=== PATIENT | male | born 2000 | race Caucasian/White ===

== ENCOUNTER 2021-05-26 19:24 | Emergency (ER) | payer OTHER ==
[2021-05-26] MEDS ORDERED: Zofran 4 MG/2 ML VIAL IV ONE (19:45)
[2021-05-26] MEDS ORDERED: Sodium Chloride 0.9% 1000 ML 1,000 ML IV STA ×2 (19:45→20:38)
--- NOTE | 2021-05-26 19:53 | ERPHSYRPT ---
- History of Present Illness Time Seen by Provider: 05/26/21 19:52 Source: patient Exam Limitations: no limitations Patient Subjective Stated Complaint: "I've been puking my guts out." Triage Nursing Assessment: Patient reported that he was working outside throout the day and began having multiple episodes of vomiting despite rest. 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 Reported abdominal cramping during the vomiting episodes. Denied pain otherwise. Denied other associated symptoms. Symmetrical chest expansion. heart tones S1/S2 tachycardic with regular rhythm. Lungs vesicular throughout all [place]. Abdomne obese non-distended and non-tended. Bowel sounds present throughout all quadrants. Peripheral pulses +3 bilateral. Physician History: Patient reported that he was working outside through out the day and began having multiple episodes of vomiting despite rest. 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 Reported abdominal cramping during the vomiting episodes. Denied pain otherwise. Denied other associated symptoms. Timing/Duration: today Severity: moderate Associated Symptoms: denies symptoms Allergies/Adverse Reactions: No Known Drug Allergies Allergy (Unverified 05/26/21 19:33) Home Medications: No Reportable Medications [No Reported Medications] 05/26/21 [History] Hx Tetanus, Diphtheria Vaccination/Date Given: No Hx Influenza Vaccination/Date Given: No Travel Risk - International Travel Have you traveled outside of the country in past 3 weeks: No - Coronavirus Screening Are you exhibiting any of the following symptoms?: No Close contact with a COVID-19 positive Pt in past 14-21 Days: No - Vaccine Status Have you recieved a Covid-19 vaccination: No - Review of Systems Constitutional: No Fever, No Chills Eyes: No Symptoms Ears, Nose, & Throat: No Symptoms Respiratory: No Cough, No Dyspnea Cardiac: No Chest Pain, No Edema, No Syncope Abdominal/Gastrointestinal: Nausea, Vomiting, No Abdominal Pain, No Diarrhea Genitourinary Symptoms: No Dysuria Musculoskeletal: No Back Pain, No Neck Pain Skin: No Rash Neurological: No Dizziness, No Focal Weakness, No Sensory Changes Psychological: No Symptoms Endocrine: No Symptoms All Other Systems: Reviewed and Negative - Past Medical History Pertinent Past Medical History: No - Past Surgical History Past Surgical History: No - Social History Smoking Status: Current every day smoker Exposure to second hand smoke: No Drug Use: none Patient Lives Alone: Yes - Nursing Vital Signs Nursing Vital Signs: Initial Vital Signs Temperature 98.3 F 05/26/21 19:25 Pulse Rate 108 H 05/26/21 19:25 Respiratory Rate 18 05/26/21 19:25 Blood Pressure 154/105 05/26/21 19:25 O2 Sat by Pulse Oximetry 97 05/26/21 19:25 Pain Scale Pain Intensity 0 - Physical Exam General Appearance: no apparent distress, alert Eye Exam: PERRL/EOMI, eyes nml inspection Ears, Nose, Throat Exam: normal ENT inspection, TMs normal, pharynx normal, moist mucous membranes Neck Exam: normal inspection, non-tender, supple, full range of motion Respiratory Exam: normal breath sounds, lungs clear, No respiratory distress Cardiovascular Exam: regular rate/rhythm, normal heart sounds, normal peripheral pulses Gastrointestinal/Abdomen Exam: soft, normal bowel sounds, No tenderness, No mass Back Exam: normal inspection, normal range of motion, No CVA tenderness, No vertebral tenderness Extremity Exam: normal inspection, normal range of motion, pelvis stable Neurologic Exam: alert, oriented x 3, cooperative, normal mood/affect, nml cerebellar function, nml station & gait, sensation nml, No motor deficits Skin Exam: normal color, warm, dry, No rash Lymphatic Exam: No adenopathy SpO2: 97 - Course Nursing assessment & vital signs reviewed: Yes Ordered Tests: Active Orders 24 hr Category Date Time Status IV Insertion STAT Care 05/26/21 19:57 Active AMYLASE Stat Lab 05/26/21 19:56 Completed CBC W DIFF Stat Lab 05/26/21 19:56 Completed CMP Stat Lab 05/26/21 19:56 Completed LIPASE Stat Lab 05/26/21 19:56 Completed Medication Summary Generic Name Dose Route Start Last Admin Trade Name Freq PRN Reason Stop Dose Admin Sodium Chloride 1,000 mls @ 999 mls/hr 05/26/21 20:38 05/26/21 20:50 Sodium Chloride 0.9% 1000 Ml IV 05/26/21 21:38 999 mls/hr .Q1H1M STA Administration Discontinued Medications Generic Name Dose Route Start Last Admin Trade Name Freq PRN Reason Stop Dose Admin Sodium Chloride 1,000 mls @ 999 mls/hr 05/26/21 19:45 05/26/21 19:59 Sodium Chloride 0.9% 1000 Ml IV 05/26/21 20:45 999 mls/hr .Q1H1M STA Administration Sodium Chloride Confirm 05/26/21 19:57 Sodium Chloride 0.9% 1000 Ml Administered 05/26/21 19:58 Dose 1,000 mls @ ud .ROUTE .STK-MED ONE Ceftriaxone Sodium/Dextrose 1 g in 50 mls @ 100 mls/hr 05/26/21 20:36 05/26/21 20:51 Rocephin 1 Gm-D5w 50 Ml Bag IV 05/26/21 21:05 100 ml/hr STAT STA 100 mls/hr Administration Sodium Chloride Confirm 05/26/21 20:47 Sodium Chloride 0.9% 1000 Ml Administered 05/26/21 20:48 Dose 1,000 mls @ ud .ROUTE .STK-MED ONE Ceftriaxone Sodium/Dextrose Confirm 05/26/21 20:47 Rocephin 1 Gm-D5w 50 Ml Bag Administered 05/26/21 20:48 Dose 1 g in 50 mls @ ud IV .STK-MED ONE Ondansetron HCl 4 mg 05/26/21 19:45 05/26/21 19:59 Zofran 4 Mg/2 Ml Vial IV 05/26/21 19:46 4 mg STAT ONE Administration Ondansetron HCl Confirm 05/26/21 19:57 Zofran 4 Mg/2 Ml Vial Administered 05/26/21 19:58 Dose 4 mg .ROUTE .STK-MED ONE Lab/Rad Data: Laboratory Result Diagrams 05/26/21 19:56 05/26/21 19:56 Laboratory Results 05/26/21 05/26/21 Range/Units 19:56 19:56 WBC 24.1 H (4.0-10.5) K/mm3 RBC 5.65 H (4.1-5.6) M/mm3 Hgb 16.2 (12.5-18.0) gm/dl Hct 49.3 (42-50) % MCV 87.3 (78-100) fl MCH 28.7 (26-32) pg MCHC 32.9 (32-36) g/dl RDW 13.7 (11.5-14.0) % Plt Count 284 (150-450) K/mm3 MPV 10.1 (7.5-11.0) fl Gran % 90.0 H (36.0-66.0) % Eos # (Auto) 0.14 (0-0.5) Absolute Lymphs (auto) 0.95 L (1.0-4.6) Absolute Monos (auto) 1.28 (0.0-1.3) Lymphocytes % 3.9 L (24.0-44.0) % Monocytes % 5.3 (0.0-12.0) % Eosinophils % 0.6 (0.00-5.0) % Basophils % 0.2 (0.0-0.4) % Absolute Granulocytes 21.71 H (1.4-6.9) Basophils # 0.04 (0-0.4) Sodium 142 (137-145) mmol/L Potassium 4.1 (3.5-5.1) mmol/L Chloride 105 (98-107) mmol/L Carbon Dioxide 21 L (22-30) mmol/L Anion Gap 19.9 H (5-15) MEQ/L BUN 16 (9-20) mg/dL Creatinine 0.73 (0.66-1.25) mg/dL Estimated GFR > 60.0 ML/MIN Glucose 132 H (74-106) mg/dL Calcium 10.0 (8.4-10.2) mg/dL Total Bilirubin 0.60 (0.2-1.3) mg/dL AST 38 (17-59) U/L ALT 51 H (0-50) U/L Alkaline Phosphatase 91 (38-126) U/L Serum Total Protein 9.1 H (6.3-8.2) g/dL Albumin 5.4 H (3.5-5.0) g/dL Amylase 56 (30-110) U/L Lipase 53 (23-300) U/L - Progress Progress: improved Counseled pt/family regarding: lab results, diagnosis, need for follow-up - Departure Departure Disposition: Home Clinical Impression: Dehydration after exertion Heat exhaustion due to water depletion Qualifiers: Encounter type: initial encounter Qualified Code(s): T67.3XXA - Heat exhaustion, anhydrotic, initial encounter Condition: Stable Critical Care Time: No Referrals: RAYA BARCLAY [Primary Care Provider] - Follow Up with PCP/3 days Instructions: Dehydration, Adult (DC), Heat Exhaustion and Heat Stroke (DC) Additional Instructions: Discharge/Care Plan RAJAN GUEVARA JR was seen on 05/26/21 in the Emergency Room. The patient was counseled regarding Diagnosis,Lab results, Imaging studies, need for follow up and when to return to the Emergency Room. Prescriptions given: Discharge Note I have spoken with the patient and/or caregivers. I have explained the patient's condition, diagnosis and treatment plan based on the information available to me at this time. I have answered the patient's and/or caregiver's questions and addressed any concerns. The patient and/or caregivers have as good understanding of the patient's diagnosis, condition and treatment plan as can be expected at this point. The vital signs have been stable. The patient's condition is stable and appropriate for discharge from the emergency department. The patient will pursue further outpatient evaluation with the primary care physician or other designated or consulting physician as outlined in the discharge instructions. The patient and/or caregivers are agreeable to this plan of care and follow-up instructions have been explained in detail. The patient and/or caregivers have received these instruction. The patient/and or caregivers are aware that any significant change in condition or worsening of symptoms should prompt an immediate return to this or the closest emergency department or call 911. RAJAN GUEVARA JR was seen on 05/26/21 n the Emergency Room. At that time you were treated for an emergent condition, during your visit Laboratory, Radiology and/or other procedures may have been ordered. It is very important that you follow-up with your Primary Care Physician RAYA BARCLAY within the next 24-48 hours to review your Emergency Room visit and the final results of testing that was ordered. Some test results such as Urine Cultures, Blood Cultures, and other cultures if ordered will not be finalized for 24-48 hours. If you do not have a Primary Care Provider please call the medical records department at [phone] to obtain a copy of your results or you may sign into our patient portal to obtain these results by visiting us @ [email or web address] and completing the following steps: 1. Click on the Patient Portal link 2. Click the Patient Self Enrollment Link to complete the enrollment form and entering your 3. Once the enrollment form is completed you will receive an email with a temporary ID and password at the email address you provided. 4. Next choose a user name and password. Your user name must be at least 4 characters long and your password must be at least 4 characters long. 5. Choose a security question from the list and provide your answer to the question. If you already have signed into the Health Portal you may access your Health Care Information 20/05 by the following steps: 1. Login to our website @ [email or web address] 2. Enter your original user name and password. FAQS The [facility] Portal is an online tool that contains your Lab Results, Radiology Reports, Visit History, Discharge Instructions and Health Summary Lab and Radiology Results will not be available for 72 hours on the portal. The Portal is a secure site, passwords are encryted and URLs are re-written so they cannot be copied and pasted. You and authorized family members are the only ones who can access your Portal. Also there is a timeout feature that protects your information if you leave the Portal page open. If you have technical difficulty please use the Contact Us link on the page this will allow you to submit any questions you have regarding the Portal or you may contact the Medical Record Department at [phone].
[2021-05-26] MEDS ORDERED: Sodium Chloride 0.9% 1000 ML 1,000 ML ONE ×2 (19:57→20:47)
[2021-05-26] MEDS ORDERED: Zofran 4 MG/2 ML VIAL ONE (19:57)
[2021-05-26 20:02] LABS: Absolute Neutrophil Ct (ANC) 21.71 (1.4-6.9); BASOPHIL % 0.2 % (0.0-0.4); Basophil (Absolute #) 0.04 (0-0.4); Eosinophil % 0.6 % (0.00-5.0); Eosinophil (Absolute #) 0.14 (0-0.5); Hematocrit 49.3 % (42-50); Hemoglobin 16.2 gm/dl (12.5-18.0); Lymphocyte (Absolute #) 0.95 (1.0-4.6); Lymphocytes % 3.9 % (24.0-44.0); Mean Cell Volume 87.3 fl (78-100); Mean Corpuscular Hemoglobin 28.7 pg (26-32); Mean Corpuscular Hgb Concent. 32.9 g/dl (32-36); Mean Platelet Volume 10.1 fl (7.5-11.0); Monocyte (Absolute #) 1.28 (0.0-1.3); Monocytes % 5.3 % (0.0-12.0); Platelet Count 284 K/mm3 (150-450); Red Blood Count 5.65 M/mm3 (4.1-5.6); Red Cell Distribution Width 13.7 % (11.5-14.0); White Blood Count 24.1 K/mm3 (4.0-10.5)
[2021-05-26 20:15] LABS: ALBUMIN 5.4 g/dL (3.5-5.0); ALKALINE PHOSPHATASE 91 U/L (38-126); AMYLASE 56 U/L (30-110); ANION GAP 19.9 MEQ/L (5-15); BLOOD UREA NITROGEN 16 mg/dL (9-20); CHLORIDE 105 mmol/L (98-107); Carbon Dioxide 21 mmol/L (22-30); Creatinine 1 0.73 mg/dL (0.66-1.25); EST GLOMERULAR FILTRATION RATE > 60.0 ML/MIN; Glucose 132 mg/dL (74-106); LIPASE 53 U/L (23-300); Potassium 4.1 mmol/L (3.5-5.1); SGOT/AST 38 U/L (17-59); SGPT/ALT 51 U/L (0-50); SODIUM 142 mmol/L (137-145); Total Protein 9.1 g/dL (6.3-8.2)
[2021-05-26] MEDS ORDERED: ROCEPHIN 1 Gm-D5w 50 ml Bag** 1 G/50 ML IVPB IV STA (20:36)
[2021-05-26] MEDS ORDERED: ROCEPHIN 1 Gm-D5w 50 ml Bag** 1 G/50 ML IVPB IV ONE (20:47)
[2021-05-26 21:43] VITALS: BP 119/70; PULSE 92; O2SAT 99
[2021-05-26 22:35] LABS: Slide Review 1 YES
== END 2021-05-26 21:48 | disposition home or self-care (01) ==
LOC: ED 19:24
DX: E86.0 Dehydration (principal); T67.3XXA Heat exhaustion, anhydrotic, initial encounter
CPT/HCPCS: 36000; 36415; 80053; 82150; 83690; 85025; 96360; 96361; 96365; 96374; 99284; J0696; J2405

== ENCOUNTER 2024-11-01 00:24 | Emergency (ER) | payer OTHER ==
--- NOTE | 2024-11-01 00:54 | ERPHSYRPT ---
- History of Present Illness Historian: patient Exam Limitations: no limitations Physician History: Patient has nausea vomiting diarrhea. It started this evening. He basically threw up what ever he had eaten. There is no bilious vomiting. He does not have any abdominal pain. He has had bowel movements and had developed diarrhea now. Is consistent with a lot of other people have seen with this over the last week or 2. He does not have any fever or chills at this time but does have some generalized malaise. Nothing makes his symptoms better or worse.His symptoms began about an hour after eating.He has had no exposure to illnesses That he knows of. Timing/Duration: today Activities at Onset: none Quality: aching Associated Symptoms: denies symptoms Allergies/Adverse Reactions: No Known Drug Allergies Allergy (Verified 11/01/24 01:40) Hx Tetanus, Diphtheria Vaccination/Date Given: No Hx Influenza Vaccination/Date Given: No - Review of Systems Constitutional: Malaise Cardiac: No Symptoms Genitourinary Symptoms: No Symptoms Musculoskeletal: No Symptoms All Other Systems: Reviewed and Negative - Past Medical History Pertinent Past Medical History: No - Past Surgical History Past Surgical History: No - Social History Smoking Status: Current every day smoker Exposure to second hand smoke: No Drug Use: none Patient Lives Alone: Yes - Nursing Vital Signs Nursing Vital Signs: Initial Vital Signs Temperature 97.6 F 11/01/24 00:25 Pulse Rate 120 H 11/01/24 00:25 Respiratory Rate 18 11/01/24 00:25 Blood Pressure 154/99 11/01/24 00:25 O2 Sat by Pulse Oximetry 95 11/01/24 00:25 Pain Scale Pain Intensity 0 - Physical Exam General Appearance: no apparent distress Eye Exam: PERRL/EOMI Ears, Nose, Throat Exam: moist mucous membranes Respiratory Exam: normal breath sounds, lungs clear, No chest tenderness, No respiratory distress Cardiovascular Exam: regular rate/rhythm Gastrointestinal/Abdomen Exam: soft, normal bowel sounds, No tenderness, No distention Neurologic Exam: alert, oriented x 3, normal mood/affect - Course Nursing assessment & vital signs reviewed: Yes Ordered Tests: Active Orders 24 hr Category Date Time Status CBC W DIFF Stat Lab 11/01/24 01:18 Completed CMP Stat Lab 11/01/24 01:18 Received LIPASE Stat Lab 11/01/24 01:18 Received Medication Summary Generic Name Dose Route Start Last Admin Trade Name Freq PRN Reason Stop Dose Admin Sodium Chloride 1,000 mls @ 999 mls/hr 11/01/24 01:00 11/01/24 01:07 Sodium Chloride 0.9% 1000 Ml IV 11/01/24 02:00 999 mls/hr .Q1H1M STA Administration Discontinued Medications Generic Name Dose Route Start Last Admin Trade Name Crow PRN Reason Stop Dose Admin Sodium Chloride Confirm 11/01/24 01:07 Sodium Chloride 0.9% 1000 Ml Administered 11/01/24 01:08 Dose 1,000 mls @ ud .ROUTE .STK-MED ONE Ondansetron HCl 4 mg 11/01/24 01:00 11/01/24 01:08 Ondansetron Hcl 4 Mg/2 Ml Vial IV 11/01/24 01:01 4 mg STAT ONE Administration Ondansetron HCl Confirm 11/01/24 01:07 Ondansetron Hcl 4 Mg/2 Ml Vial Administered 11/01/24 01:08 Dose 4 mg .ROUTE .STK-MED ONE Lab/Rad Data: Laboratory Result Diagrams 11/01/24 01:18 Laboratory Results 11/01/24 Range/Units 01:18 WBC 23.9 H (4.23-9.07) x10^3/uL RBC 5.82 (4.63-6.08) x10^6/uL Hgb 16.5 (13.7-17.5) g/dL Hct 49.6 (40.1-51.0) % MCV 85.2 (79.0-92.2) fL MCH 28.4 (25.7-32.2) pg MCHC 33.3 (32.3-36.5) g/dL RDW 12.9 (11.6-14.4) % Plt Count 428 H (163-337) x10^3/uL MPV 10.0 (9.4-12.4) fL Gran % 82.5 H (34.0-67.9) % Immature Gran % (Auto) 0.8 H (0.001-0.429) % Nucleat RBC Rel Count 0.0 (0.00-0.2) % Eos # (Auto) 0.64 H (0.04-0.54) x10^3/uL Immature Gran # (Auto) 0.20 H (0.001-0.031) x10^3u/L Absolute Lymphs (auto) 1.99 (1.32-3.57) x10^3/uL Absolute Monos (auto) 1.18 H (0.30-0.82) x10^3/uL Absolute Nucleated RBC 0.00 (0.00-0.012) x10^3u/L Lymphocytes % 8.3 L (21.8-53.1) % Monocytes % 4.9 L (5.3-12.2) % Eosinophils % 2.7 (0.8-7.0) % Basophils % 0.8 (0.2-1.2) % Absolute Granulocytes 19.75 H (1.78-5.38) x10^3/uL Basophils # 0.18 H (0.01-0.08) x10^3/uL - Progress Progress: improved Progress Note: Patient was stable throughout stay. He got a liter of fluid and some Zofran and improved. His labs all look good. On the differential wasGastroenteritis, colitis, bowel obstruction.It appears to be gastroenteritis. I am going to send him home with Zofran.His pulse rate decreased from 1 20-94 after half a bag of fluids 11/01/24 00:53 11/01/24 01:48 Medical Desision Making - External Record(s) Reviewed Records reviewed as a part of evaluation & management: Inpatient - Diagnostic Testing Diagnostic test were ordered, analyzed, and reviewed by me: Yes - Risk of complications Minimal Risk: Minimal risk of morbidity - Departure Departure Disposition: Home Clinical Impression: Gastroenteritis Condition: Stable Critical Care Time: No Referrals: RAYA BARCLAY [Primary Care Provider] - Follow up/PCP as directed Instructions: Viral gastroenteritis in adults
[2024-11-01] MEDS ORDERED: Zofran 4 MG/2 ML VIAL ONE (01:07)
[2024-11-01] MEDS ORDERED: Sodium Chloride 0.9% 1000 ML 1,000 ML ONE (01:07)
[2024-11-01] MEDS: Sodium Chloride 0.9% 1000 ML 1,000 ML IV STA (01:07)
[2024-11-01] MEDS: Zofran 4 MG/2 ML VIAL IV ONE (01:08)
[2024-11-01 01:21] LABS: Absolute Neutrophil Ct (ANC) 19.75 x10^3/uL (1.78-5.38); BASOPHIL % 0.8 % (0.2-1.2); Basophil (Absolute #) 0.18 x10^3/uL (0.01-0.08); Eosinophil % 2.7 % (0.8-7.0); Eosinophil (Absolute #) 0.64 x10^3/uL (0.04-0.54); Hematocrit 49.6 % (40.1-51.0); Hemoglobin 16.5 g/dL (13.7-17.5); IMMATURE GRAN % 0.8 % (0.001-0.429); Lymphocyte (Absolute #) 1.99 x10^3/uL (1.32-3.57); Lymphocytes % 8.3 % (21.8-53.1); Mean Cell Volume 85.2 fL (79.0-92.2); Mean Corpuscular Hemoglobin 28.4 pg (25.7-32.2); Mean Corpuscular Hgb Concent. 33.3 g/dL (32.3-36.5); Monocyte (Absolute #) 1.18 x10^3/uL (0.30-0.82); Monocytes % 4.9 % (5.3-12.2); Neutrophil % 82.5 % (34.0-67.9); Platelet Count 428 x10^3/uL (163-337); Red Blood Count 5.82 x10^6/uL (4.63-6.08); Red Cell Distribution Width 12.9 % (11.6-14.4); White Blood Count 23.9 x10^3/uL (4.23-9.07)
[2024-11-01 01:37] VITALS: PULSE 120; RESP 18; TEMP 97.6; O2SAT 95
[2024-11-01 02:00] LABS: ALBUMIN 5.3 g/dL (3.5-5.0); BILIRUBIN,TOTAL 0.8 mg/dL (0.2-1.3); Calcium 9.9 mg/dL (8.4-10.2); Creatinine 1 0.98 mg/dL (0.66-1.25); EST GLOMERULAR FILTRATION RATE 109.7 ML/MIN; Potassium 4.1 mmol/L (3.5-5.1); Total Protein 9.4 g/dL (6.3-8.2)
[2024-11-01 02:05] VITALS: BP 137/94
== END 2024-11-01 02:15 | disposition home or self-care (01) ==
LOC: ED 00:24
DX: K52.9 Noninfective gastroenteritis and colitis, unspecified (principal); R11.2 Nausea with vomiting, unspecified; Z72.0 Tobacco use
CPT/HCPCS: 36415; 80053; 83690; 85025; 96374; 96375; 99283; 99284; J2405